=== PATIENT | male | born 1985 | race Caucasian/White ===

== ENCOUNTER 2020-01-12 12:46 | Emergency (ER) | payer OTHER, SELFPAY ==
--- NOTE | ~2020-01-12 | XR_ITS ---
XR foot LT min 3V DATE: 01/12/2020 13:32 INDICATION: Plantar left foot pain. No injury. TECHNIQUE: 4 views COMPARISON: None FINDINGS: There is mild posterior calcaneal enthesopathy. There is mild osteoarthritis at the first metatarsophalangeal joint. No fracture, dislocation, periosteal reaction or bone destruction is detected. IMPRESSION: Mild posterior calcaneal enthesopathy. Reviewed, dictated and finalized at location A.
[2020-01-12 13:02] VITALS: BP 137/87; PULSE 69; RESP 16; TEMP 36.7; O2SAT 99
--- NOTE | 2020-01-12 13:18 | ED.EXTPRO ---
HPI - Extremity Problem General Chief complaint: Extremity Problem,Nontraumatic Stated complaint: L/foot discomfort Time Seen by Provider: 01/12/20 13:18 Source: patient and RN notes reviewed Mode of arrival: ambulatory History of Present Illness HPI Narrative: 34 year old male who presents to [facility] care with complaints of left foot feeling mushy since Wednesday and after walking on his left foot the plantar area will be mildly painful. Patient states he pushed mowed the yard on Wednesday prior to the start of his symptoms. Patient denies any known trauma to left foot or any recent injury to ankle area. Patient denies any tingling or numbness to his left foot, strong pedal pulses and posterior tibial pulses present foot warm and mobile. MD Complaint: extremity pain and other (complint that top of left foot feels mushy) Onset (ago): day(s) (5) Pain Consistency: intermittent Location: left and lower extremity Severity scale (1-10): 3 Quality: aching Radiation: none Relieving factors: rest Exacerbating factors: walking Associated symptoms: denies other symptoms Related Data Home Medications Medication Instructions Recorded Confirmed No Home Medications 01/12/20 01/12/20 Allergies Allergy/AdvReac Type Severity Reaction Status Date / Time No Known Allergies Allergy Mild Unverified 01/12/20 13:07 Review of Systems Review of Systems: Narrative: CONSTITUTIONAL: Denies fever, chills, or sweats. EYES: Denies visual changes, redness, or discharge. ENT: Denies rhinorrhea, congestion, sore throat, or otalgia. CARDIOVASCULAR: Denies chest pain, palpitations, or edema. RESPIRATORY: Denies cough or dyspnea. GASTROINTESTINAL: Denies abdominal pain, nausea, vomiting, or diarrhea. GENITOURINARY: Denies dysuria or hematuria. SKIN: Denies rash or itching. MUSCULOSKELETAL: Denies back pain,positive pain to the plantar region of his left foot joint, or myalgia. NEUROLOGIC: Denies headache, numbness, or weakness. PSYCHIATRIC: Denies anxiety or depression. All systems reviewed & are unremarkable except as noted in HPI and below PMFSH Past Medical History Medical History (Updated 01/12/20 @ 14:40 by Taryn Gayle NP) Ankle sprain Surgical History Surgical History (Updated 01/12/20 @ 14:40 by Taryn Gayle NP) No significant past surgical history Social History Social History (Updated 01/12/20 @ 14:40 by Taryn Gayle NP) Smoking status: Never smoker Alcohol intake: current Gender identity (if verbalized by the patient): Male Comments At time of signature, agree with nursing past medical, surgical, social history. There is no relevant family history pertinent to the presenting complaint Exam Narrative: Exam Narrative: GENERAL: Well-appearing, well-nourished, and in no acute distress. HEAD: Normocephalic, atraumatic. EYES: PERRLA and EOMI. ENT: Nares clear, no rhinorrhea or epistaxis. Mucous membranes moist. NECK: Supple.no lymphadenopathy CHEST: Clear to auscultation. No respiratory distress.SSAO99% on room air HEART: Regular rate and rhythm. No murmur heard. Normal peripheral pulses. ABDOMEN: Soft, nontender, nondistended, normal active bowel sounds. EXTREMITIES: Normal range of motion. No edema.soft nontender palpation to dorsal aspect of his left foot with reported interval of pain to sole of his left foot with ambulation, stong pedal and posterior tibial pulses present. foot warm to touch and mobile SKIN: Warm, dry, no rash. NEURO: No focal deficits. Alert and oriented x3. Course Vital Signs Vital signs: Vital Signs Temperature 36.7 C 01/12/20 13:02 Pulse Rate 69 01/12/20 13:02 Respiratory Rate 16 01/12/20 13:02 Blood Pressure 137/87 01/12/20 13:02 Pulse Oximetry 99 01/12/20 13:02 Temperature 36.7 C 01/12/20 13:02 Pulse Rate 69 01/12/20 13:02 Respiratory Rate 16 01/12/20 13:02 Blood Pressure 137/87 01/12/20 13:02 Pulse Oximetry 99 01/12/20 13:02
== END 2020-01-12 14:16 | disposition home or self-care (01) ==
PROVIDERS: Emergency Provider Registered Nurse
DX: M72.2 Plantar fascial fibromatosis (principal)
CPT/HCPCS: 73630; 99203; G0463

== ENCOUNTER 2020-06-21 15:01 | Emergency (ER) | payer OTHER, SELFPAY ==
--- NOTE | ~2020-06-21 | XR_ITS ---
EXAMINATION: XR chest 1V portable INDICATION: Cough and congestion TECHNIQUE: Portable AP chest at 1601 hours COMPARISON: None available FINDINGS: There are minimal airspace opacities of the lung bases. There is no pleural effusion or pne umothorax. The cardiomediastinal silhouette is normal. The visualized bones and soft tissues are unre markable. IMPRESSION: 1. Minimal airspace opacities of the lung bases, consistent with atelectasis versus pneumonia. Reviewed, dictated and finalized at location A. NCILEMENT CLERK IMPRESSION: 1. Minimal airspace opacities of the lung bases, consistent with atelectasis ve rsus pneumonia.
[2020-06-21 15:17] VITALS: BP 153/92; PULSE 82; RESP 20; TEMP 36.5; O2SAT 98
[2020-06-21 15:47] VITALS: O2SAT 98
--- NOTE | 2020-06-21 16:23 | ED.GENADULT ---
HPI - General Adult General Chief complaint: Upper Respiratory Infection Stated complaint: congestion Time Seen by Provider: 06/21/20 15:42 History of Present Illness HPI narrative: Patient is a 34-year-old gentleman who presents the emergency department with chief complaint of cough. The patient reports he was recently in [place] and since then has had a cough has been nonproductive but also has had episodes where he when he lays down he feels as though he does not get enough air. The patient states that he was concerned that he may have Covid so he came to the emergency department for evaluation. Related Data Allergies Allergy/AdvReac Type Severity Reaction Status Date / Time No Known Allergies Allergy Mild Unverified 01/12/20 13:07 Review of Systems Review of Systems: Narrative: A 10 system review of systems was completed on the patient and is negative except for what is stated in the HPI. Nursing and ancillary documentation was reviewed. COUNTS INCLUDE 234 BEDS AT THE [facility] Past Medical History Medical History Ankle sprain Surgical History Surgical History No significant past surgical history Social History Social History Smoking status: Never smoker Alcohol intake: current Gender identity (if verbalized by the patient): Male Exam Narrative: Exam Narrative: GENERAL: Well-appearing, well-nourished, and in no acute distress. HEAD: Normocephalic, atraumatic. EYES: PERRLA and EOMI. ENT: Nares clear, no rhinorrhea or epistaxis. Mucous membranes moist. NECK: Supple. CHEST: Clear to auscultation. No respiratory distress. HEART: Regular rate and rhythm. No murmur heard. Normal peripheral pulses. ABDOMEN: Soft, nontender, nondistended, normal active bowel sounds. EXTREMITIES: Normal range of motion. No edema. SKIN: Warm, dry, no rash. NEURO: No focal deficits. Alert and oriented x3. PSYCH: Normal mood and affect. Course Course Emergency Course: Chest x-ray shows atelectasis versus infiltrate Vital Signs Vital signs: Vital Signs Temperature 36.5 C 06/21/20 15:17 Pulse Rate 82 06/21/20 15:17 Respiratory Rate 20 06/21/20 15:17 Blood Pressure 153/92 H 06/21/20 15:17 Pulse Oximetry 98 06/21/20 15:17 Temperature 36.5 C 06/21/20 15:17 Pulse Rate 82 06/21/20 15:17 Respiratory Rate 20 06/21/20 15:17 Blood Pressure 153/92 H 06/21/20 15:17 Pulse Oximetry 98 06/21/20 15:17 Medical Decision Making Vital Signs Vital Signs: Vital Signs Temperature 36.5 C 06/21/20 15:17 Pulse Rate 82 06/21/20 15:17 Respiratory Rate 20 06/21/20 15:17 Blood Pressure 153/92 H 06/21/20 15:17 Pulse Oximetry 98 06/21/20 15:17 Temperature 36.5 C 06/21/20 15:17 Pulse Rate 82 06/21/20 15:17 Respiratory Rate 20 06/21/20 15:17 Blood Pressure 153/92 H 06/21/20 15:17 Pulse Oximetry 98 06/21/20 15:17 Discharge Plan Discharge Clinical Impression: Community acquired pneumonia, Upper respiratory infection Patient Disposition: Home, Self-Care Condition: Stable Instructions: Antibiotic Form, Upper Respiratory Infection (ED), Community Acquired Pneumonia (ED) Additional Instructions: A COVID-19 test was sent it is recommended that you self quarantine until the results of the test are available Prescriptions: New benzonatate 200 mg capsule 200 mg PO TID PRN (Reason: cough) 7 Days Qty: 21 RF: 0 azithromycin [Zithromax Z-Darryl] 250 mg tablet See Rx Instructions .ROUTE .COMPLEX Qty: 6 RF: 0 Follow-up/Referrals: PHYSICIAN,FREELANCE OPERATOR [Primary Care Provider] - Jose Carter MD [Physician] - Time of Disposition: 16:31
[2020-06-21 16:51] VITALS: BP 142/70; PULSE 88; RESP 14; O2SAT 99
[2020-06-23 00:20] LABS: SARS-CoV-2 RNA PCR Negative
== END 2020-06-21 16:51 | disposition home or self-care (01) ==
PROVIDERS: Emergency Provider Emergency Medicine
DX: J18.9 Pneumonia, unspecified organism (principal); J06.9 Acute upper respiratory infection, unspecified; Z20.822 Contact with and (suspected) exposure to COVID-19
CPT/HCPCS: 71045; 99283; C9803; U0003; U0005

== ENCOUNTER 2020-07-05 13:30 | Emergency (ER) | payer OTHER, SELFPAY ==
--- NOTE | ~2020-07-05 | XR_ITS ---
EXAMINATION: XR chest 2V DATE: 07/05/2020 13:43 INDICATION: Pneumonia. TECHNIQUE: Frontal and lateral views of the chest were obtained. COMPARISON: Chest single view 06/21/2020 FINDINGS: The chest demonstrates clear lungs without pneumonia, pleural effusion, or pneumothorax. Th e heart size is normal. IMPRESSION: 1. No acute cardiopulmonary disease. Reviewed, dictated and finalized at location A. GER BANKING
[2020-07-05 13:37] VITALS: BP 152/84; PULSE 70; RESP 20; TEMP 37; O2SAT 99
--- NOTE | 2020-07-05 13:45 | ED.URI ---
HPI - URI/Sore Throat General Chief Complaint: Upper Respiratory Infection Stated Complaint: S/P PNEUMONIA History of Present Illness HPI Narrative: The patient, a non-smoker/occasional drinker, presents for abnormal chest x-ray reexamination. Patient states he was seen and treated for symptomatic, afebrile, walking pneumonia about 2 weeks ago- based upon E.R. chest x-ray which revealed bilateral atelectasis versus infiltrate then. Covid test then was negative PCR after he had returned from his trip to [place] then; he is better currently asymptomatic without fever, cough, S OB, wheezing/sneezing, CP. Related Data Allergies Allergy/AdvReac Type Severity Reaction Status Date / Time No Known Allergies Allergy Mild Unverified 01/12/20 13:07 Review of Systems Review of Systems: Narrative: General/Constitutional: No weight loss,fever Eyes: N0: Redness,discharge Ears/Nose/Throat: No: Epistaxis,ear discharge Respiratory: Denies: Hemoptysis Gastrointestinal: No Vomiting, Bleeding-rectal Skin: No Lumps, eruption Neurologic: No Focal Weakness,Sz Hematologic: Denies: Petechiae/Purpura Psychiatric: No: Suicida ideationl All Other Systems: Reviewed and Negative [facility] Past Medical History Medical History Ankle sprain Surgical History Surgical History No significant past surgical history Social History Social History Smoking status: Never smoker Alcohol intake: current Gender identity (if verbalized by the patient): Male Comments At time of signature, agree with nursing past medical, surgical, social and family history. There is no relevant family history pertinent to the presenting complaint Exam Narrative: Exam Narrative: General Appearance: Well appearing/obese , Conjunctiva clear Mouth/Throat: Normal appearing, suppple Respiratory: Airway patent, No respiratory distress Cardiovascular: RRR Musculoskeletal: Full ROM Skin: Warm, Dry Neurological: A&O x3, , Normal affect Course Vital Signs Vital signs: Vital Signs Temperature 98.6 F 07/05/20 13:37 Pulse Rate 70 07/05/20 13:37 Respiratory Rate 20 07/05/20 13:37 Blood Pressure 152/84 H 07/05/20 13:37 Pulse Oximetry 99 07/05/20 13:37 Temperature 98.6 F 07/05/20 13:37 Pulse Rate 70 07/05/20 13:37 Respiratory Rate 20 07/05/20 13:37 Blood Pressure 152/84 H 07/05/20 13:37 Pulse Oximetry 99 07/05/20 13:37 Discharge Plan Discharge Clinical Impression: Abnormal x-ray examination Patient Disposition: Home, Self-Care Condition: Stable Follow-up/Referrals: Jose Carter MD [Primary Care Provider] -
== END 2020-07-05 14:00 | disposition home or self-care (01) ==
PROVIDERS: Emergency Provider Emergency Medicine; PCP Emergency Medicine
DX: R91.8 Other nonspecific abnormal finding of lung field (principal)
CPT/HCPCS: 71046; 99213; G0463

== ENCOUNTER 2021-03-28 12:19 | Emergency (ER) | payer OTHER, SELFPAY ==
[2021-03-28 12:37] VITALS: BP 141/90; PULSE 78; RESP 16; TEMP 36.6; O2SAT 99
[2021-03-28 12:46] VITALS: BP 141/90; PULSE 78; RESP 16; TEMP 36.6; O2SAT 99
--- NOTE | 2021-03-28 13:28 | ED.URI ---
HPI - URI/Sore Throat General Chief Complaint: Upper Respiratory Infection Stated Complaint: swollen tonsils/drainage Time Seen by Provider: 03/28/21 13:00 Source: patient, RN notes reviewed and old records reviewed Mode of arrival: ambulatory Limitations: no limitations History of Present Illness HPI Narrative: 35-year-old male who presents to [facility] with complaints of postnasal drainage, sore throat, swollen tonsils, and painful swallowing since Wednesday. Patient states that he had a COVID test done Wednesday in [facility] prior to returning to the [facility] from vacation. Patient states that he has had his COVID vaccinations. He reports that he has had no known fevers, chills or sweats or any body aches, no cough or any shortness of breath. MD elicited complaint: sore throat Related Data Allergies Allergy/AdvReac Type Severity Reaction Status Date / Time No Known Allergies Allergy Mild Unverified 03/28/21 13:24 Review of Systems Review of Systems: CONSTITUTIONAL: Denies fever, chills, or sweats. EYES: Denies visual changes, redness, or discharge. ENT: Positive for post nasal rhinorrhea, congestion, sore throat, no otalgia. CARDIOVASCULAR: Denies chest pain, palpitations, or edema. RESPIRATORY: Denies cough or dyspnea. GASTROINTESTINAL: Denies abdominal pain, nausea, vomiting, or diarrhea. GENITOURINARY: Denies dysuria or hematuria. SKIN: Denies rash or itching. MUSCULOSKELETAL: Denies back pain, joint pain, or myalgia. NEUROLOGIC: Denies headache, numbness, or weakness. PSYCHIATRIC: Denies anxiety or depression. All systems reviewed & are unremarkable except as noted in HPI and below PMFSH Past Medical History Medical History (Updated 03/28/21 @ 16:14 by Taryn Gayle NP) Ankle sprain Surgical History Surgical History (Updated 03/28/21 @ 16:14 by Taryn Gayle NP) Martin teeth extracted Family History Family History (Updated 03/28/21 @ 16:15 by Taryn Gayle NP) Father Heart disease Diabetes mellitus Grandparent Cancer Social History Social History (Updated 03/28/21 @ 16:17 by Taryn Gayle NP) Smoking status: Never smoker Alcohol intake: current Substance use: never Living arrangements: with family Gender identity (if verbalized by the patient): Male Comments At time of signature, agree with nursing past medical, surgical, social and family history. There is no relevant family history pertinent to the presenting complaint Exam Narrative: GENERAL: Well-appearing, well-nourished, and in no acute distress. HEAD: Normocephalic, atraumatic. EYES: PERRLA and EOMI. ENT: Nares red with clear rhinorrhea no epistaxis. Mucous membranes moist.TM's normal with good light reflex, throat red with tonsils enlarged, red swollen and with painful swallowing. NECK: Supple. bilateral lymphadenopathy CHEST: Clear to auscultation. No respiratory distress.SAO2 99% on room air HEART: Regular rate and rhythm. No murmur heard. Normal peripheral pulses. ABDOMEN: Soft, nontender, nondistended, normal active bowel sounds. EXTREMITIES: Normal range of motion. No edema. SKIN: Warm, dry, no rash. NEURO: No focal deficits. Alert and oriented x3. Course Vital Signs Vital signs: Vital Signs Temperature 36.6 C 03/28/21 12:37 Pulse Rate 78 03/28/21 12:37 Respiratory Rate 16 03/28/21 12:37 Blood Pressure 141/90 H 03/28/21 12:37 Pulse Oximetry 99 03/28/21 12:37 Temperature 36.6 C 03/28/21 12:46 Pulse Rate 78 03/28/21 12:46 Respiratory Rate 16 03/28/21 12:46 Blood Pressure 141/90 H 03/28/21 12:46 Pulse Oximetry 99 03/28/21 12:46 MDM - URI/Sore Throat Differential Diagnosis Differential diagnosis: Likely upper respiratory infection, viral infection, pharyngitis and other (Strep pharyngitis, acute tonsillitis) Medical Records Attestation: I reviewed the patient's medical records. Lab Data Attestation: I reviewed the patient's lab results. Lab results na
== END 2021-03-28 13:46 | disposition home or self-care (01) ==
PROVIDERS: Emergency Provider Registered Nurse
DX: J03.90 Acute tonsillitis, unspecified (principal)
CPT/HCPCS: 87081; 87880; 99213; G0463

== ENCOUNTER 2024-06-03 12:42 | Emergency (ER) | payer OTHER, SELFPAY ==
[2024-06-03] VITALS (9 sets, daily range): BP systolic 146–205; BP diastolic 90–106; PULSE 75–105; RESP 12–17; TEMP 36.4; O2SAT 12–100
--- NOTE | ~2024-06-03 | XR_ITS ---
XR chest 2V DATE: 06/03/2024 13:27 INDICATION: Chest pain TECHNIQUE: PA and lateral views COMPARISON: 07/05/2020 PA and lateral chest FINDINGS: Normal heart size. No hilar or mediastinal enlargement. No pulmonary infiltrate or consolid ation, pleural effusion or pulmonary vascular congestion or pneumothorax. Included skeletal structure s are unremarkable. IMPRESSION: No active cardiopulmonary disease Reviewed, dictated and finalized at location A. ENT CARE COORDINATOR
--- NOTE | 2024-06-03 12:46 | ECG_ITS ---
Test Date: 2024-06-03 12:52:36 Measurements Intervals [place] Rate: 91 P: 42 DC: 198 QRS: 14 QRSD: 90 T: 53 QT: 332 QTc: 409 Interpretive Statements SINUS RHYTHM POSSIBLE SEPTAL INFARCT No previous ECG available for comparison Electronically Signed On 06-07-2024 15:49:22 ALUMINUM SIDING INSTALLER by Dustin Levine M.D.
[2024-06-03] MEDS: ASPIRIN 81 MG CHEWABLE TABLET 324 MG PO (13:11)
--- NOTE | 2024-06-03 13:12 | ED_ITS ---
HPI - Arrhythmia/Palpitations General Chief Complaint: Arrhythmia/Palpitations Stated Complaint: increased HR Time Seen by Provider: 06/03/24 13:12 Source: patient Mode of arrival: ambulatory History of Present Illness HPI narrative: 38 years old white male drove himself to the emergency room because of sudden onset of increased heart rate. Patient was taking a shower, felt his heart was racing at that time, report mild left chest aches lasted for less than 10 seconds, he denies any fever, chills, nausea, vomiting, shortness of breath, back pain or abdominal pain. On arrival to the ED patient heart rate was 105, within few minutes went down to 87 per minute. Currently patient is asymptomatic. Patient is his otherwise healthy, does not take meds at home, drinks alcohol few days a week, denies smoking cigarettes or marijuana use. Patient denies any family history of coronary artery disease. Patient report quite a bit of stress lately. Patient reported playing myGreek last night using both upper extremity Related Data Allergies Allergy/AdvReac Type Severity Reaction Status Date / Time No Known Allergies Allergy Mild Verified 06/03/24 13:12 Review of Systems 2 Review of Systems: All systems reviewed & are unremarkable except as noted in HPI and below PMFSH Past Medical History Medical History Ankle sprain Surgical History Surgical History Melvin teeth extracted Family History Family History Father Heart disease Diabetes mellitus Grandparent Cancer Social History Social History Smoking status: Never smoker Alcohol intake: current Substance use: never Living arrangements: with family Gender identity (if verbalized by the patient): Male Exam 2 Narrative: General appearance: Well-developed, well-nourished Skin: Normal color Head: Normocephalic, nontraumatic Eyes: Clear conjunctiva ENT: Oropharynx normal, ears normal, nose normal Neck: Supple, nontender Chest and respiratory: Airway patent, no respiratory distress, no accessory muscle use. Slight tenderness left upper chest with deep palpation Heart: Regular rate/rhythm Abdomen: Soft, nontender, no organomegaly, quiet bowel sounds Vascular: Normal peripheral pulses, normal capillary refill. Musculoskeletal: Normal range of motion, nontender back Neurologic: Alert and oriented ?3, MINING ENGINEERING TECHNOLOGIST is normal as tested, no gross motor deficit Course Vital Signs Vital signs: Vital Signs Temperature 36.4 C 06/03/24 12:47 Pulse Rate 105 H 06/03/24 12:47 Respiratory Rate 16 06/03/24 12:47 Blood Pressure 205/101 H 06/03/24 12:47 Pulse Oximetry 100 06/03/24 12:47 Temperature 36.4 C 06/03/24 12:47 Pulse Rate 79 06/03/24 16:24 Respiratory Rate 14 06/03/24 16:24 Blood Pressure 146/94 H 06/03/24 16:24 Pulse Oximetry 12 L 06/03/24 16:24 Oxygen Delivery Room Air 06/03/24 13:10 MDM - Arrhythmia/Palpitations MDM Narrative Medical decision making narrative: Patient drove himself to the ED with fast heartbeat Physical examination showing 142 kg patient, flushed face otherwise insignificant Differential diagnosis include anxiety like symptoms, uncontrolled hypertension, electrolyte abnormality, Differential Diagnosis Differential diagnosis: Likely palpitations, anxiety and sinus tachycardia Medical Records Attestation: I reviewed the patient's medical records. Lab Data Attestation: I reviewed the patient's lab results. 06/03/24 13:19 06/03/24 13:19 Labs: Lab Results 06/03/24 06/03/24 Range/Units 13:19 16:23 WBC 5.8 (4.5-10.0) K/mm3 RBC 4.52 L (4.6-6.20) M/mm3 Hgb 13.9 L (14.0-18.0) g/dL Hct 42.1 (42.0-52.0) % MCV 93.1 (80-100) fl MCH 30.8 (26-34) pg MCHC 33.0 (32-36) g/dl RDW 13.1 (11.5-14.5) % Plt Count 190 (150-375) k/mm3 MPV 8.8 (7.4-10.4) fl Immature Gran % (Auto) 0.5 (0-0.5) % Neut % (Auto) 75.8 H (45.5-73.1) % Lymph % (Auto) 15.4 L (18.3-44.2) % Cannon % (Auto) 6.7 (2.6-8.5) % Eos % (Auto) 0.9 (0-4.4) % Baso % (Auto) 0.7 (0.2-1.2) % Lymph # (Auto) 0.89 L (0.9-3.2) K/mm3 Cannon # (Auto) 0.4 (0.1-0.6) K/mm3 Eos # (Auto) 0.1 (0-0.3) K/mm3 Baso # (Auto) 0.0 (0.0-0.1) K/mm3 Abs Immat Gran (auto) 0.03 (0.00-0.031) K/mm3 Absolute Neuts (auto) 4.4 (1.3-6.7) K/mm3 Absolute Nucleated RBC 0.000 (0.0-0.012) K/mm3 Nucleated RBC % 0.0 (0.0-0.2) % PT 12.7 (11.1-14.7) Seconds INR 0.9 APTT 30.2 (22.3-36.8) Seconds Sodium 137 (137-145) mmol/L Potassium 4.5 (3.4-5.0) mmol/L Chloride 107 (98-107) mmol/L Carbon Dioxide 29 (22-30) mmol/L Anion Gap 1 L (4-12) mmol/L BUN 9 (9-20) mg/dL Creatinine 0.80 (0.7-1.3) mg/dL Estim Creat Clear Calc 160 ml/min Estimated GFR > 60 (59 - ) Glucose 99 (65-110) mg/dL Calcium 9.5 (8.4-10.2) mg/dL Total Bilirubin 0.9 (0.2-1.3) mg/dL AST 31 (17-59) U/L ALT 35 (6-50) U/L Alkaline Phosphatase 73 (38-126) U/L Troponin I < 0.012 < 0.012 (0.000-0.034) ng/mL Total Protein 8.0 (6.3-8.2) g/dL Albumin 4.5 (3.5-5.1) g/dL Lipase 134 (23-300) U/L Imaging Data Radiologist's impression: Impressions Chest X-Ray 06/03/24 13:34 IMPRESSION: No active cardiopulmonary disease ECG Data EKG #1: Attestation: I personally reviewed and interpreted this ECG as follows: ECG completion date: 06/03/24 ECG completion time: 14:12 Interpretation: Normal sinus rhythm at 91 beats per minute, poor R-wave progression, possible anterior myocardial infarction of indeterminate age, No previous EKG available for comparison Critical Care Time Critical Care Time Critical Care Time: No Discharge Plan Discharge Clinical Impression: Palpitations, Hypertension Patient Disposition: Home, Self-Care Condition: Improved Instructions: Heart Palpitations (DC), Hypertension (ED) Patient Language: Icelandic Prescriptions: New metoprolol tartrate [Lopressor] 50 mg tablet 25 mg PO Q12H Qty: 60 0RF nitroglycerin 0.4 mg tablet, sublingual 0.4 mg sublingual Q5M PRN (Reason: chest pain) Qty: 30 0RF Rx Instructions: do not exceed 3 doses per episode aspirin 81 mg capsule 81 mg PO DAILY Qty: 30 0RF hydrochlorothiazide 12.5 mg capsule 12.5 mg PO DAILY Qty: 30 0RF No Action amoxicillin 875 mg tablet 875 mg PO Q12H Qty: 20 0RF dexamethasone [Decadron] 6 mg tablet 6 mg PO DAILY Qty: 2 0RF Follow-up/Referrals: Jose Carter MD [Physician] - 06/06/24 UNKNOWN,DOCTOR [Non-Staff] - Quality HEART score for chest pain patients History: slightly suspicious ECG: non specific repolarization disturbance/LBTB/PM Age: < or = to 45 years Risk factors: 1 or 2 risk factors Troponin: < or = to 1x normal limit Heart score: 2
[2024-06-03 13:26] LABS: Basophils Percent Auto 0.7 % (0.2-1.2); Eosinophils Absolute Auto 0.1 K/mm3 (0-0.3); Eosinophils Percent Auto 0.9 % (0-4.4); Hematocrit 42.1 % (42.0-52.0); Hemoglobin 13.9 g/dL (14.0-18.0); Immature Granulocyte Absolute 0.03 K/mm3 (0.00-0.031); Immature Granulocyte Percent A 0.5 % (0-0.5); Lymphocytes Absolute Auto 0.89 K/mm3 (0.9-3.2); Lymphocytes Percent Auto 15.4 % (18.3-44.2); Mean Corpuscular Hemoglobin 30.8 pg (26-34); Mean Corpuscular Volume 93.1 fl (80-100); Mean Platelet Volume 8.8 fl (7.4-10.4); Monocytes Absolute Auto 0.4 K/mm3 (0.1-0.6); Monocytes Percent Auto 6.7 % (2.6-8.5); Neutrophils Absolute Auto 4.4 K/mm3 (1.3-6.7); Neutrophils Percent Auto 75.8 % (45.5-73.1); Platelet Count Result 190 k/mm3 (150-375); Red Blood Count 4.52 M/mm3 (4.6-6.20); Red Cell Distribution Width 13.1 % (11.5-14.5); White Blood Count 5.8 K/mm3 (4.5-10.0)
[2024-06-03 13:35] LABS: Alanine Aminotransferase 35 U/L (6-50); Albumin Level 4.5 g/dL (3.5-5.1); Alkaline Phosphatase 73 U/L (38-126); Anion Gap 1 mmol/L (4-12); Aspartate Amino Transferase 31 U/L (17-59); Bilirubin,Total 0.9 mg/dL (0.2-1.3); Blood Urea Nitrogen 9 mg/dL (9-20); Calcium 9.5 mg/dL (8.4-10.2); Carbon Dioxide 29 mmol/L (22-30); Chloride 107 mmol/L (98-107); Estimated CRCL calculation 160 ml/min; Estimated Glomerular Filt Rate > 60; Glucose 99 mg/dL (65-110); Lipase 134 U/L (23-300); Potassium 4.5 mmol/L (3.4-5.0); Sodium 137 mmol/L (137-145)
[2024-06-03 13:47] LABS: INR 0.9; Prothrombin Time 12.7 Seconds (11.1-14.7); Troponin I < 0.012 ng/mL (0.000-0.034)
[2024-06-03 13:48] LABS: Partial Thromboplastin Time 30.2 Seconds (22.3-36.8)
[2024-06-03] MEDS: LORazepam INJ (*CRX) 2 MG/ML VIAL 1 MG IV PUSH (14:03)
[2024-06-03] MEDS: METOPROLOL TARTRATE 25 MG TABLET PO (14:24)
[2024-06-03] MEDS: NITROGLYCERIN OINTMENT 1 INCH DOSE TRANSDERM (14:25)
--- NOTE | 2024-06-03 15:52 | ECG_ITS ---
Test Date: 2024-06-03 16:19:37 Measurements Intervals [place] Rate: 77 P: 48 GA: 219 QRS: 14 QRSD: 98 T: 42 QT: 357 QTc: 406 Interpretive Statements SINUS RHYTHM WITH FIRST DEGREE AV BLOCK POSSIBLE SEPTAL INFARCT Compared to ECG 06/03/2024 12:52:36 NO SIGNIFICANT CHANGES Electronically Signed On 06-07-2024 15:52:21 MOVING WORKER by Dustin Levine M.D.
[2024-06-03 16:50] LABS: Troponin I < 0.012 ng/mL (0.000-0.034)
--- OUTSIDE RECORDS SUMMARY | 2024-06-10 19:15 | XMS_ITS | Encounter Summary ---
Author Organization [facility] Address [address] [place] [address] Care Team Providers Care Animal Cruelty Investigation Supervisor Name Role Phone Unavailable Primary Care Provider Unavailabl e Reason for Visit * Reason Onset Date Comments Results 12/10/2019 Encounter Details Date Type Department Care Team (Late st Contact Info) Description 12/10/[address] [facility] [address] [place] [id number] Radha Albert, [address] [place] [phone] Results Social History Tobacco Use Types Packs/Day Years Used Date Smoking Tobacco: Never Assessed Sex and Gender Information Value Date Recorded Sex Assigned at Not on file Gender Identity Not on file Sexual Orientation Not on file documented as of this encounter Plan of Treatment Not on file documented as of this encounter Visit Diagnoses Not on filedocumented in this encounter
--- OUTSIDE RECORDS SUMMARY | 2024-06-10 19:15 | XMS_ITS | Clinical Summary ---
Author Organization [facility] Address [address] [facility] [place] [address] Care Team Providers Care Furniture Upholsterer Apprentice Name Role Phone Unavailable Primary Care Provider Unavailabl e Medications No known medications Active Problems No known active problems Social History Tobacco Use Types Packs/Day Years Used Date Smoking Tobacco: Never Assessed Sex and Gender Information Value Date Recorded Sex Assigned at Not on file Gender Identity Not on file Sexual Orientation Not on file Plan of Treatment Health Maintenance Due Date Last Done Comments DTAP/TDAP/TD VACCINES (1 - Tdap) 08/01/2002 HEPATITIS B VACCINES (1 of 3 - 19+ 3-dose series) 08/01/2002 INFLUENZA VACCINE (#1) 2023 HPV VACCINES Aged Out No longer eligi ble based on patient's age to complete this topic PNEUMOCOCCAL VACCINE 0-64 YEARS Aged Out No longer eligible based on patient's age [place] [address]
--- OUTSIDE RECORDS SUMMARY | 2024-06-10 19:15 | XMS_ITS | Encounter Summary ---
Author Organization [facility] Address [address] [place] [address] Care Team Providers Care Warehouse Worker Name Role Phone Unavailable Primary Care Provider Unavailabl e Reason for Visit * Reason Comments Labs Only Encounter Details Date Type Department Care Team (Late st Contact Info) Description 12/08/2019 12:40 PM CDT Office Visit [facility] [place] [address] [place] [address] Screening for viral disease (Primary Dx) Social History Tobacco Use Types Packs/Day Years Used Date Smoking Tobacco: Never Assessed Sex and Gender Information Value Date Recorded Sex Assigned at Not on file Gender Identity Not on file Sexual Orientation Not on file documented as of this encounter Progress Notes * Anh Alfonso FNP - 12/08/2019 12:40 PM CDT HISTORY OF PRESENT ILLNESS Blayne Johnson, a 34 y.o. male presents with a Chief Complaint of No chief complaint on file. Subjective HPI Pt was exposed to COVID, no symptoms would like a test. REVIEW OF SYSTEMS Review of Systems Constitutional: Negative. HENT: Negative. Respiratory: Negative. Cardiovascular: Negative. Gastrointestinal: Negative. Skin: Negative. All other systems reviewed and are negative. Objective PHYSICAL EXAM There were no vitals taken for this visit. Physical Exam Vitals signs and nursing note reviewed. Constitutional: Appearance: Normal appearance. HENT: Head: Normocephalic. Cardiovascular: Rate and Rhythm: Normal rate and regular rhythm. Heart sounds: Normal heart sounds, S1 normal and S2 normal. Pulmonary: Effort: Pulmonary effort is normal. Breath sounds: Normal breath sounds and air entry. Skin: General: Skin is warm. Capillary Refill: Capillary refill takes less than 2 seconds. Psychiatric: Behavior: Behavior is cooperative. Procedures Assessment ASSESSMENT and PLAN: ICD-10-CM ICD-9-CM 1. Screening for viral disease Z11.59 V73.99 ?? Patient is well-appearing and low risk for complications. ?? Vital signs and exam are reassuring. ?? COVID swab obtained in clinic. Pt tolerated well with no immediate complications observed. Pt counseled on signs/symptoms that warrant further evaluation. ?? Advise follow-up with PCP or here in 1-3 days if symptoms not improving, or follow-up with ED immediately if symptoms worsen. documented in this encounter Miscellaneous Notes * Patient Instructions - Anh Alfonso FNP - 12/08/2019 12:40 PM CDT ?? Patient is well-appearing and low risk for complications. ?? Vital signs and exam are reassuring. ?? COVID swab obtained in clinic. Pt tolerated well with no immediate complications observed. Pt counseled on signs/symptoms that warrant further evaluation. ?? Advise follow-up with PCP or here in 1-3 days if symptoms not improving, or follow-up with ED immediately if symptoms worsen. documented in this encounter Plan of Treatment Not on file documented as of this encounter Procedures Procedure Name Priority Date/Time Associated Diagnosis Comments 2019 NOVEL CORONAVIRUS (COVID-19) PCR DETECTION Routine 12/08/2019 9:13 AM CDT documented in this encounter Results * 2019 NOVEL CORONAVIRUS (COVID-19) PCR DETECTION (12/08/2019 9:13 AM CDT) Pathologist [facility] COVID-19 PCR NOT DETECTED NOT DETECTED [employer] Comment: A Not Detected (negative) test result for this test means that SARS- CoV-2 RNA was not present in the specimen above the limit of detection. A negative result does not rule out the possibility of COVID-19 and should not be used as the sole basis for treatment or patient management decisions. ??If COVID-19 is still suspected, based on exposure history together with other clinical findings, re-testing should be considered in consultation with public health authorities. Laboratory test results should always be considered in the context of clinical observations and epidemiological data in making a final diagnosis and patient management decisions. Please review the Fact Sheets and FDA authorized labeling available for health care providers and patients using the following websites: https://www.NewsCred.Triggit/home/Covid-19/HCP/NAAT/fact-sheet2 https://www.NewsCred.Triggit/home/Covid-19/Patients/NAAT/ fact-sheet2 This test has been authorized by the FDA under an Emergency Use Authorization (EUA) for use by authorized laboratories. Due to the current public health emergency, [facility] is receiving a high volume of samples from a wide variety of swabs and media for COVID-19 testing. In order to serve patients during this public health crisis, samples from appropriate clinical sources are being tested. Negative test results derived from specimens received in non-commercially manufactured viral collection and transport media, or in media and sample collection kits not yet authorized by FDA for COVID-19 testing should be cautiously evaluated and the patient potentially subjected to extra precautions such as additional clinical monitoring, including collection of an additional specimen. Methodology: ??Nucleic Acid Amplification Test (NAAT) includes PCR or TMA Additional information about COVID-19 can be found at the [facility] website: www.[employer].Triggit/Covid19. Test Performed at: [facility] [id number] [place] [address] ??[phone] Greg Wallace D.O., MPH Upper Respiratory ENTIRE NASOPHARYNX / Unknown 12/08/2019 9:13 AM CDT Anh IRAHETA MICROBIOLOGY - GENER AL ORDERABLES [employer] [address] [place] [address] documented in this encounter Visit Diagnoses Diagnosis Screening for viral disease- Primary Special screening examination for unspecified viral disease documented in this encounter Additional Health Concerns Infection Onset Date Last Indicated Resolved Time R/O COVID-19 12/08/2019 12/08/2019 12/09/2019 9:02 PM CDT documented as of this encounter
--- OUTSIDE RECORDS SUMMARY | 2024-06-10 20:40 | XMS_ITS | Encounter Summary ---
Author Organization [facility] Address [address] [place] [address] Care Team Providers Care Hand Sewer Shoes Name Role Phone Unavailable Primary Care Provider Unavailabl e Reason for Visit * Reason Onset Date Comments Results 12/10/2019 Encounter Details Date Type Department Care Team (Late st Contact Info) Description 12/10/2019 Telephone [facility] [address] [facility] [place] [phone] Radha Albert, [address] [place] [phone] Results Social History Tobacco Use Types Packs/Day [...]
--- OUTSIDE RECORDS SUMMARY | 2024-06-10 20:40 | XMS_ITS | Clinical Summary ---
Author Organization [facility] Address [address] [facility] [place] [address] Care Team Providers Care Comptometer Operator Name Role Phone Unavailable Primary Care Provider [...] patient's age [place] [address]
--- OUTSIDE RECORDS SUMMARY | 2024-06-10 20:40 | XMS_ITS | Encounter Summary ---
Author Organization [facility] Address [address] [place] [address] Care Team Providers Care Cloth Coverer Name Role Phone Unavailable Primary Care Provider Unavailabl e Reason for Visit * Reason Comments Labs Only Encounter Details Date Type Department Care Team (Late st Contact Info) Description 12/08/2019 12:40 PM CDT Office Visit [facility] [place] [address] [place] [address] Screening for viral disease (Primary Dx) Social [...] PCR DETECTION (12/08/2019 9:13 AM CDT) Pathologist [facility] COVID-19 PCR NOT DETECTED NOT DETECTED [facility] Comment: A Not Detected (negative) test result [...] providers and patients using the following websites: https://www.H[employer].Wave Systems/home/Covid-19/HCP/NAAT/fact-sheet2 https://www.[employer].Wave Systems/home/Covid-19/Patients/NAAT/ fact-sheet2 This test has been authorized by the FDA under an Emergency Use Authorization (EUA) for use by authorized laboratories. Due to the current public health emergency, [facility] is receiving a high volume of samples [...] about COVID-19 can be found at the [facility] website: www.[employer].Wave Systems/Covid19. Test Performed at: [facility] [id number] [place] [address] ??[phone] Greg Wallace D.O., MPH Upper Respiratory ENTIRE NASOPHARYNX / Unknown 12/08/2019 9:13 AM CDT Anh IRAHETA MICROBIOLOGY - GENER AL ORDERABLES [employer] [facility] [address] [place] [address] documented in this encounter Visit Diagnoses Diagnosis Screening for viral disease- Primary Special screening examination for unspecified viral disease documented in this encounter Additional Health Concerns Infection Onset Date Last Indicated Resolved Time R/O COVID-19 12/08/2019 12/08/2019 12/09/2019 9:02 PM CDT documented as of this encounter
== END 2024-06-03 18:00 | disposition home or self-care (01) ==
PROVIDERS: Emergency Provider Emergency Medicine
DX: R00.2 Palpitations (principal); I10 Essential (primary) hypertension; R94.31 Abnormal electrocardiogram [ECG] [EKG]; I44.0 Atrioventricular block, first degree
CPT/HCPCS: 36415; 71046; 80053; 83690; 84484; 85025; 85610; 85730; 93005; 96374; 99284; A9270; J2060

== ENCOUNTER 2024-12-02 22:15 | Emergency (ER) | payer OTHER, SELFPAY ==
--- NOTE | ~2024-12-02 | CT_ITS ---
CLINICAL INDICATION: Abdominal pain, bloating, belching COMPARISON: None. TECHNIQUE: Multiple contiguous axial images of the abdomen and pelvis were performed following the ad ministration of with 100 mL Omnipaque-350 intravenous contrast The dose-length product (DLP) was 1707.23 mGy-cm. Automated exposure control and iterative reconstruction technique were employed. FINDINGS/OBSERVATIONS: Visualized lower thorax: Calcified granuloma within the right lung base, suggesting prior granulomatous disease. The remainder of the bilateral lung bases are clear. The heart is of normal size, without pericardial effusion. Small hiatal hernia is present. Liver: The liver demonstrates homogeneous enhancement and is borderline enlarged measuring 20 cm in longitud inal dimension. Gallbladder and biliary system: The gallbladder is only minimally distended, and otherwise unremarkable. Pancreas: The pancreas enhances homogeneously without ductal dilatation. Spleen: The spleen enhances homogeneously and is borderline enlarged measuring 14 cm in longitudinal dimensio n. Kidneys: Fluid attenuation focus within the upper pole of the left kidney measuring 4.5 x 4.7 x 5.2 c m, consistent with a simple cyst for which focused ultrasound may be performed nonemergently for conf irmation. The remainder of the bilateral kidneys otherwise enhance symmetrically without hydronephrosis or moiz l calculi. Adrenal glands: Unremarkable. Gastrointestinal tract: Edematous mural thickening within the proximal stomach for which a mild gastritis is suspected. Appendix: The air-filled appendix is of normal caliber (axial series, images 85 through 103) Vasculature: Unremarkable. Lymph nodes: No pathologically enlarged or morphologically suspicious lymph nodes within the retroperitoneum or at the root of the mesentery. Pelvic structures: The bladder is decompressed, limiting its evaluation. The prostate gland is not enlarged. Body wall and musculoskeletal: Small fat-containing umbilical hernia. No significant degenerative disease within the lower thoracic or lumbosacral spine. IMPRESSION: Findings suggesting a mild gastritis, as detailed above. 5.2 cm simple cyst within the left kidney for which focused ultrasound may be performed nonemergently for confirmation. Findings suggesting prior granulomatous disease. Otherwise, unremarkable CT examination of the abdomen and pelvis, as detailed above. Reviewed, dictated and finalized at location A. IMPRESSION: Findings suggesting a mild gastritis, as detailed above. 5.2 cm simple cyst within the left kidney for which focused ultrasound may be p erformed nonemergently for confirmation. Findings suggesting prior granulomatous disease. Otherwise, unremarkable CT examination of the abdomen and pelvis, as detailed luke schwartz.
--- OUTSIDE RECORDS SUMMARY | 2024-12-02 22:17 | XMS_ITS | Clinical Summary ---
Author Organization [facility] Address [address] [facility] [place] [address] Care Team Providers Care Sales Operations Associate Name Role Phone Unavailable Primary Care Provider Unavailabl e Medications No known medications Active Problems No known active problems Social History Tobacco Use Types Packs/Day Years Used Date Smoking Tobacco: Never Assessed Sex and Gender Information Value Date Recorded Sex Assigned at Not on file Legal Sex Male 12:34 PM CDT Gender Identity Not on file Sexual Orientation Not on file Plan of Treatment Health Maintenance Due Date Last Done Comments DTAP/TDAP/TD VACCINES (1 - Tdap) 08/01/2002 HEPATITIS B VACCINES (1 of 3 - 19+ 3-dose series) 08/01/2002 INFLUENZA VACCINE (#1) 2024 HPV VACCINES Aged Out No longer eligi ble based on patient's age to complete [place] [address] [employer]
[2024-12-02 22:18] VITALS: BP 170/90; PULSE 72; RESP 20; TEMP 36.8; O2SAT 100
--- NOTE | 2024-12-02 22:22 | ECG_ITS ---
Test Date: 2024-12-02 22:34:20 Measurements Intervals [place] Rate: 61 P: -7 RI: 182 QRS: 3 QRSD: 102 T: 28 QT: 399 QTc: 405 Interpretive Statements SINUS RHYTHM SEPTAL MYOCARDIAL INFARCTION , OF INDETERMINATE AGE [40+ ms Q WAVE IN V1/V2] Compared to ECG 06/03/2024 16:19:37 no change Electronically Signed On 12-03-2024 13:44:06 CDT by Raulito Gaffney M.D.
[2024-12-03 02:23] LABS: Hematocrit 40.5 % (42.0-52.0); Hemoglobin 13.1 g/dL (14.0-18.0); Immature Granulocyte Percent A 0.2 % (0-0.5); Lymphocytes Absolute Auto 1.72 K/mm3 (0.9-3.2); Mean Corpuscular HGB Conc 32.3 g/dl (32-36); Mean Corpuscular Hemoglobin 30.5 pg (26-34); Mean Corpuscular Volume 94.2 fl (80-100); Nucleated Red Blood Cells Absolute Auto 0.000 K/mm3 (0.0-0.012); Nucleated Red Blood Cells Perc 0.0 % (0.0-0.2); Platelet Count Result 176 k/mm3 (150-375); Red Blood Count 4.30 M/mm3 (4.6-6.20); White Blood Count 6.2 K/mm3 (4.5-10.0)
[2024-12-03 02:34] LABS: Alanine Aminotransferase 22 U/L (6-50); Albumin Level 4.2 g/dL (3.5-5.1); Alkaline Phosphatase 66 U/L (38-126); Anion Gap 7 mmol/L (4-12); Aspartate Amino Transferase 27 U/L (17-59); Bilirubin,Total 1.2 mg/dL (0.2-1.3); Blood Urea Nitrogen 6 mg/dL (9-20); Calcium 9.1 mg/dL (8.4-10.2); Carbon Dioxide 27 mmol/L (22-30); Chloride 104 mmol/L (98-107); Estimated CRCL calculation 159 ml/min; Estimated Glomerular Filt Rate > 60; Glucose 92 mg/dL (65-110); Lipase 144 U/L (23-300); Potassium 3.9 mmol/L (3.4-5.0); Sodium 138 mmol/L (137-145); Total Protein 7.0 g/dL (6.3-8.2)
--- NOTE | 2024-12-03 02:55 | PC.NURSE ---
Report received from EDEN Howell. Assumed care of patient at this time.
--- OUTSIDE RECORDS SUMMARY | 2024-12-03 02:57 | XMS_ITS | Clinical Summary ---
Author Organization [facility] Address [address] [facility] [place] [address] Care Team Providers Care Reproduction Technician Name Role Phone Unavailable Primary Care Provider [...] age to complete [place] [address] [employer] S[employer]ERS CHOICE
--- NOTE | 2024-12-03 03:39 | ED.ABDPAIN ---
HPI - Abdominal Pain General Chief Complaint: Abdominal Pain Stated Complaint: abd pain Time Seen by Provider: 12/03/24 02:46 History of Present Illness HPI narrative: 39-year-old male with no pertinent past medical history aside from hypertension presenting to the emergency department with epigastric abdominal discomfort and bloating. He states has been going on for 1 month and went to urgent care 2 weeks ago and was diagnosed with GERD and gastritis and given omeprazole and Pepcid which he has been taking scheduled without any improvement symptoms. Over last week he has been noticing worsening belching, abdominal bloating and pinpoint left upper quadrant pain and radiating into his epigastrium. Is trying to schedule with a GI doctor but has not made an appointment yet. No chest pain, back pain, fever, chills, trauma or injury. No diet changes or any bowel habit changes. No blood per rectum. No dark stools. Related Data Allergies Allergy/AdvReac Type Severity Reaction Status Date / Time No Known Allergies Allergy Mild Verified 12/02/24 22:22 [facility] Past Medical History Medical History Ankle sprain Surgical History Surgical History [place] teeth extracted Family History Family History Father Heart disease Diabetes mellitus Grandparent Cancer Social History Social History Smoking status: Never smoker Alcohol intake: current Substance use: never Living arrangements: with family Gender identity (if verbalized by the patient): Male Course Vital Signs Vital signs: Vital Signs Temperature 36.8 C 12/02/24 22:18 Pulse Rate 72 12/02/24 22:18 Respiratory Rate 20 12/02/24 22:18 Blood Pressure 170/90 H 12/02/24 22:18 Pulse Oximetry 100 12/02/24 22:18 Oxygen Delivery Room Air 12/02/24 22:18 Temperature 36.8 C 12/02/24 22:18 Pulse Rate 72 12/02/24 22:18 Respiratory Rate 20 12/02/24 22:18 Blood Pressure 170/90 H 12/02/24 22:18 Pulse Oximetry 100 12/02/24 22:18 Oxygen Delivery Room Air 12/02/24 22:18 MDM - Abdominal Pain MDM Narrative Medical decision making narrative: 39-year-old male with no pertinent past medical history aside from hypertension presenting to the emergency department with epigastric abdominal discomfort and bloating. He states has been going on for 1 month and went to urgent care 2 weeks ago and was diagnosed with GERD and gastritis and given omeprazole and Pepcid which he has been taking scheduled without any improvement symptoms. Over last week he has been noticing worsening belching, abdominal bloating and pinpoint left upper quadrant pain and radiating into his epigastrium. Is trying to schedule with a GI doctor but has not made an appointment yet. No chest pain, back pain, fever, chills, trauma or injury. No diet changes or any bowel habit changes. No blood per rectum. No dark stools. Patient is not any acute distress and has a soft nontender mildly distended abdomen. He points focally to his left upper quadrant and states that he has deep pain in this region. Not worse with food or exertion. No changes at night. Vital signs reveal some hypertension which is chronic for him, no tachycardia, fever, hypoxia. Differential is gastritis, gastritis, peptic ulcer disease, duodenal ulcer, perforation less likely given his normal exam, pancreatitis, pancreatic mass, gastric mass. CT abdomen pelvis with contrast ordered, CBC, CMP, lipase and EKG to evaluate for cardiac causes but low suspicion at this juncture. Patient CT scan was reviewed and interpreted by radiology with no acute findings. Organs are within normal limits, incidentally found right renal cyst. His laboratory studies do not show any leukocytosis or significant anemia. Normal platelet count. Electrolytes are unremarkable, normal renal and hepatic function panel. Normal glucose. Normal albumin. Normal lipase. Urine with no signs of infection or blood. EKG obtained shows sinus rhythm, no ST segment elevations, depressions or acute inversions. Patient is asymptomatic at this time, normal exam, no significant abnormal vital signs, unremarkable labs and CT scan and can be safely discharged home with regular outpatient follow-up. He is supposed to be scheduled with Dr. Flores for gastroenterology evaluation and we encouraged him to make sure to get this scheduled and he was also given return precautions. Medical Records Attestation: I reviewed the patient's medical records. Lab Data Attestation: I reviewed the patient's lab results. 12/03/24 02:16 12/03/24 02:16 Labs: Lab Results 12/03/24 12/03/24 Range/Units 02:16 03:49 WBC 6.2 (4.5-10.0) K/mm3 RBC 4.30 L (4.6-6.20) M/mm3 Hgb 13.1 L (14.0-18.0) g/dL Hct 40.5 L (42.0-52.0) % MCV 94.2 (80-100) fl MCH 30.5 (26-34) pg MCHC 32.3 (32-36) g/dl RDW 13.2 (11.5-14.5) % Plt Count 176 (150-375) k/mm3 MPV 8.7 (7.4-10.4) fl Immature Gran % (Auto) 0.2 (0-0.5) % Neut % (Auto) 62.5 (45.5-73.1) % Lymph % (Auto) 27.7 (18.3-44.2) % [place] % (Auto) 7.2 (2.6-8.5) % Eos % (Auto) 1.6 (0-4.4) % Baso % (Auto) 0.8 (0.2-1.2) % Lymph # (Auto) 1.72 (0.9-3.2) K/mm3 [place] # (Auto) 0.5 (0.1-0.6) K/mm3 Eos # (Auto) 0.1 (0-0.3) K/mm3 Baso # (Auto) 0.1 (0.0-0.1) K/mm3 Abs Immat Gran (auto) 0.01 (0.00-0.031) K/mm3 Absolute Neuts (auto) 3.9 (1.3-6.7) K/mm3 Absolute Nucleated RBC 0.000 (0.0-0.012) K/mm3 Nucleated RBC % 0.0 (0.0-0.2) % Sodium 138 (137-145) mmol/L Potassium 3.9 (3.4-5.0) mmol/L Chloride 104 (98-107) mmol/L Carbon Dioxide 27 (22-30) mmol/L Anion Gap 7 (4-12) mmol/L BUN 6 L (9-20) mg/dL Creatinine 0.78 (0.7-1.3) mg/dL Estim Creat Clear Calc 159 ml/min Estimated GFR > 60 (59 - ) Glucose 92 (65-110) mg/dL Calcium 9.1 (8.4-10.2) mg/dL Total Bilirubin 1.2 (0.2-1.3) mg/dL AST 27 (17-59) U/L ALT 22 (6-50) U/L Alkaline Phosphatase 66 (38-126) U/L Total Protein 7.0 (6.3-8.2) g/dL Albumin 4.2 (3.5-5.1) g/dL Lipase 144 (23-300) U/L Urine Color Yellow (Yellow) Urine Appearance Cloudy H (Clear) Urine pH 5.5 (5.0-9.0) Ur Specific [place] 1.025 (1.001-1.035) Urine Protein Negative (Negative) mg/dL Urine Glucose (UA) Negative (Negative) mg/dL Urine Ketones 1+ H (Negative) mg/dL Ur Blood (Man) Negative (Negative) Urine Nitrate Negative (Negative) Urine Bilirubin Negative (Negative) Urine Urobilinogen 1.0 (<2.0) mg/dL Add Ur Microanalysis Reviewed Leukocyte Esterase Rfl Negative (Negative) ISIDRA/UL Urine RBC 0-2 (0-2) /hpf Urine WBC 0-5 (0-3) /hpf Ur Squamous Epith Cells None seen (Few) /hpf Urine Bacteria None seen /hpf Urine Casts 3-5 Urine Mucus Present /lpf Imaging Data Attestation: I personally reviewed and interpreted this imaging study as follows: My impression: Right renal cyst 4.3 cm, no other acute abnormalities Discharge Plan Discharge Clinical Impression: Abdominal pain, epigastric, Abdominal bloating Patient Disposition: Home Condition: Stable Instructions: Antibiotic Form, Abdominal Pain (ED) Additional Instructions: Your laboratory studies are all within normal limits and nothing acute or concerning found. Your CT scan shows no evidence of any organ dysfunction, no acute abnormalities or masses. You do have an instantly found right-sided kidney cyst but this is not causing any of your symptoms and not causing any issues with your urine your kidney function. You do need to see her fiberglass tube molder on outpatient basis for further evaluation but no urgent or emergent concerns were identified today which is reassuring. Continue taking your medications as prescribed and return with any emergent concerns. Patient Language: Pashto Prescriptions: No Action amoxicillin 875 mg tablet 875 mg PO Q12H Qty: 20 0RF dexamethasone [Decadron] 6 mg tablet 6 mg PO DAILY Qty: 2 0RF metoprolol tartrate [Lopressor] 50 mg tablet 25 mg PO Q12H Qty: 60 0RF nitroglycerin 0.4 mg tablet, sublingual 0.4 mg sublingual Q5M PRN (Reason: chest pain) Qty: 30 0RF Rx Instructions: do not exceed 3 doses per episode aspirin 81 mg capsule 81 mg PO DAILY Qty: 30 0RF hydrochlorothiazide 12.5 mg capsule 12.5 mg PO DAILY Qty: 30 0RF Follow-up/Referrals: PHYSICIAN,PYTHON PROGRAMMER [Primary Care Provider] - Be Kearney MD [Physician] - 1 Week (Abdominal bloating and pain) Time of Disposition: 05:25
[2024-12-03 04:06] LABS: Add Urine Microscopic? YES; Appearance Urine Cloudy (Clear); Glucose Urine UA Negative (Negative); Leukocyte Esterase Ur Negative LEU/UL (Negative); Need Manual Microscopic Reviewed; Nitrate Urine Negative (Negative); Specific Grav Ur 1.025 (1.001-1.035)
[2024-12-03 05:38] VITALS: BP 152/95; PULSE 58; RESP 19; O2SAT 99
== END 2024-12-03 05:47 | disposition home or self-care (01) ==
PROVIDERS: Emergency Provider Student in an Organized Health Care Education/Training Program
DX: R10.13 Epigastric pain (principal); R14.0 Abdominal distension (gaseous); I10 Essential (primary) hypertension; K21.9 Gastro-esophageal reflux disease without esophagitis; Z79.82 Long term (current) use of aspirin; Z79.899 Other long term (current) drug therapy; R94.31 Abnormal electrocardiogram [ECG] [EKG]
CPT/HCPCS: 36415; 74177; 80053; 81001; 83690; 85025; 93005; 99284; Q9967

== ENCOUNTER 2025-01-16 00:37 | Day surgery (SDC) | payer BC, SELFPAY ==
[2025-01-04 13:27] VITALS: BMI 37.2
--- OUTSIDE RECORDS SUMMARY | 2025-01-16 00:39 | XMS_ITS | Clinical Summary ---
Author Organization [facility] Address [address] [place] [address] Care Team Providers Care Ambulance Attendant Name Role Phone Unavailable Primary Care Provider [...] Health Maintenance Due Date Last Done Comments HPV VACCINES (1 - Male 3-dose series) 08/01/1998 DTAP/TDAP/TD VACCINES (1 - Tdap) 08/01/2002 HEPATITIS B VACCINES (1 of 3 - 19+ 3-dose series) 08/2002 INFLUENZA VACCINE (#1) [address] [place] [address] ALL SAVERS CHOICE
[2025-01-16 07:36] VITALS: BP 132/92; PULSE 58; RESP 18; TEMP 36.1; O2SAT 99
[2025-01-16] MEDS: LACTATED RINGERS 1,000 ML 150 ML IV CONT (07:50)
--- NOTE | 2025-01-16 07:56 | WPDANESEPPF ---
Anes - Initial Pre Proc Eval Procedure: Operation Date: 01/16/25 08:15 Proposed Procedures p Esophagogastroduodenoscopy - Be Kearney MD Date/Time: 01/16/25 07:56 Surgeon: Be Kearney MD Pre Op Diagnosis: Left upper quadrant pain Patient Data Age: 39 Gender: M Height: 1.88 m Weight: 132.6 kg Last Vital Signs Temp 36.1 C L 01/16/25 07:36 Pulse 58 L 01/16/25 07:36 Resp 18 01/16/25 07:36 BP 132/92 H 01/16/25 07:36 Pulse Ox 99 01/16/25 07:36 O2 Del Method Room Air 01/16/25 07:36 Allergies Allergy/AdvReac Type Severity Reaction Status Date / Time No Known Allergies Allergy Mild Verified 01/16/25 07:35 Home Medications ?Medication ?Instructions ?Recorded ?Confirmed ?Type nitroglycerin 0.4 mg sublingual 0.4 mg sublingual Q5M PRN chest 06/03/24 01/04/25 Rx tablet pain #30 tabs atorvastatin 20 mg tablet 20 mg PO QPM 12/14/24 01/04/25 History multivitamin (Multiple Vitamins 1 tablet PO DAILY 12/14/24 01/04/25 History tablet) omega 6-jaf-ubm-fish oil 1,000 mg 1 cap PO DAILY 12/14/24 01/04/25 History (120 mg-180 mg) capsule (Fish Oil) omeprazole 20 mg capsule,delayed 20 mg PO DAILY #30 caps 12/29/24 01/04/25 Rx release metoprolol succinate 50 mg 50 mg PO DAILY 01/04/25 01/04/25 History tablet,extended release 24 hr Patient hx anesthesia problems: none Family hx anesthesia problems: none Results Review: All pre-operative results and documents have been reviewed as part of the pre-operative evaluation. [facility] Past Medical History Medical History Anemia Hyperlipidemia Hypertension LUQ abdominal pain Ankle sprain Surgical History Surgical History [place] teeth extracted Family History Family History Father Heart disease Diabetes mellitus Grandparent Cancer Social History Social History Smoking status: Never smoker Alcohol intake: current Drinks per week: 6 Substance use: never Substance use type: does not use Living arrangements: with family Gender identity (if verbalized by the patient): Male Spiritual care concerns: No Anes - Eval Final PreProcedure Day of Procedure 01/16/25 07:56 Patient weight: obese Heart: regular rate and rhythm Lungs: clear to auscultation Airway: Mallampati scale class III Neurological: alert and oriented Last oral intake: >/= 8 hours ASA classification: III Emergent: no Anesthetic plan: proceed Anesthesia type and monitoring: general GIVS and standard monitoring Results Review: All pre-operative results and documents have been reviewed as part of the pre-operative evaluation. Informed Consent: The patient's anesthetic plan and its attendant risks and benefits were discussed with the patient/family/POA. Questions were solicited and answers provided to the satisfaction of the patient/family/POA.
--- NOTE | 2025-01-16 08:01 | WPDHPUPDATE1 ---
History and Physical Update Update Date/Time: 01/16/25 08:01 History and Physical has been reviewed, including an updated exam of the patient. There are NO changes in the patient's condition. Risks, benefits, and alternatives have been discussed and questions answered. Patient agrees to proceed with procedure.
--- NOTE | 2025-01-16 08:04 | S_PTH ---
PATIENT: Blayne Johnson LOC: [facility] [place]#:[id number] AGE/SX: 39/M ROOM: RE01/16/[address]: Be Kearney MD : [id number] BED: DIS: 01/16/2025 SPEC #: [id number] RECD: 01/16/25 08:58 STATUS: JAYLEEN REBakari #: [id number] KATIE: 01/16/25 08:[address]: Be Kearney DEPT: [facility] [place] Surgical RECD BY: Vince Workman ENTERED: 01/16/25 08:58 SP TYPE: Surgical OTHR DR: Raj Rivero MD Tissues: A - Gastric Biopsy B - Small Bowel Bx Procedures: Hematoxylin and Eosin Stain Gross and Microscopic Level 4
[2025-01-16 08:08] VITALS: BP 123/78; PULSE 63; RESP 24; O2SAT 97
[2025-01-16 08:18] VITALS: BP 106/71; PULSE 62; RESP 18; O2SAT 98
[2025-01-16 08:28] VITALS: BP 107/73; PULSE 61; RESP 18; O2SAT 98
== END 2025-01-16 08:35 | disposition home or self-care (01) ==
PROVIDERS: PCP Family Medicine; Referring Provider Nurse Practitioner Family; Visit Provider Internal Medicine Gastroenterology
PROC: 0DJ08ZZ Inspection of Upper Intestinal Tract, Via Natural or Artificial Opening Endoscopic (ICD-10-PCS; CPT 43239; principal; 2025-01-16 08:15)
DX: D64.9 Anemia, unspecified (principal); K21.9 Gastro-esophageal reflux disease without esophagitis; E78.5 Hyperlipidemia, unspecified; I10 Essential (primary) hypertension; E66.9 Obesity, unspecified; Z68.37 Body mass index [BMI] 37.0-37.9, adult; Z98.890 Other specified postprocedural states; Z80.9 Family history of malignant neoplasm, unspecified; Z82.49 Family history of ischemic heart disease and other diseases of the circulatory system
CPT/HCPCS: 43239; 88305; J2704; J7120